=== PATIENT | female | born 1995 | race Hispanic/Latino ===

== ENCOUNTER 2018-05-21 21:18 | Emergency (ER) | payer MEDICAID ==
[2018-05-21 22:42] VITALS: BP 120/75; TEMP 98.9; O2SAT 100
[2018-05-21] MEDS ORDERED: Lactated Ringer's 1,000 ML IV STA (23:10)
[2018-05-21 23:15] LABS: SQUAMOUS EPITHIAL 8 /hpf (0-5); URINE BACTERIA RARE (<OCC); URINE BILIRUBIN NEGATIVE (NEGATIVE); URINE BLOOD NEGATIVE (NEGATIVE); URINE CLARITY SLIGHTY-CLOUDY (Clear); URINE COLOR STRAW (YELLOW); URINE GLUCOSE (UA) NEG (Normal); URINE LEUKOCYTE ESTERASE NEG Leu/uL (Negative); URINE PROTEIN NEGATIVE (NEGATIVE); URINE UROBILINOGEN 0.2-1.0 mg/dL (0.2-1.0)
[2018-05-21 23:30] LABS: BARBITURATES, UR NEGATIVE (NEGATIVE); BENZODIAZEPINES, UR NEGATIVE (NEGATIVE); OPIATES, UR NEGATIVE (NEGATIVE); PHENCYCLIDINE, UR NEGATIVE (NEGATIVE)
--- NOTE | 2018-05-21 23:46 | ED PDOC ---
HPI: Female Pain Time Seen by Provider: 05/21/18 22:41 Chief Complaint (Nursing): Female Genitourinary Chief Complaint (Provider): pelvic pain History Per: Patient History/Exam Limitations: no limitations Onset/Duration Of Symptoms: Days (5), Intermittent Episodes Current Symptoms Are (Timing): Still Present Severity: Moderate Quality Of Discomfort: "Pain" Associated Symptoms: Chills, Nausea, Urinary Symptoms (frequency). denies: Fever, Vomiting, Diarrhea, Loss Of Appetite, Back Pain Alleviating Factors: None Additional Complaint(s): Symptoms started after undergoing procedure on May 16. According to mother, a small "catheter" was placed in the vagina and then into the uterus to evaluate patient for fertility. She denies any vaginal bleeding. Pt undergoing fertility evaluation secondary to not getting after 3 years of trying with her . [employer] CLE[employer] Dr Taylor Past Medical History Reviewed: Historical Data, Nursing Documentation, Vital Signs Vital Signs: Last Vital Signs Temp 98.9 F 05/21/18 22:38 Pulse 90 05/21/18 22:38 Resp 18 05/21/18 22:38 BP 120/75 05/21/18 22:38 Pulse Ox 100 05/21/18 22:38 - Medical History PMH: No Chronic Diseases - Surgical History Surgical History: No Surg Hx - Family History Family History: States: No Known Family Hx - Social History Current smoker - smoking cessation education provided: No - Home Medications Home Medications: Ambulatory Orders Medication Instructions Recorded Nitrofurantoin Macrocrystals 100 mg PO BID 5 Days cap 05/22/18 [Macrobid] - Allergies Allergies/Adverse Reactions: Allergies Allergy/AdvReac Type Severity Reaction Status Date / Time No Known Allergies Allergy Verified 05/21/18 22:38 Review of Systems ROS Statement: Except As Marked, All Systems Reviewed And Found Negative (and as per HPI) Constitutional: Positive for: Chills Genitourinary Female: Positive for: Dysuria, Frequency, Pelvic Pain. Negative for: Vaginal Discharge, Vaginal Bleeding Physical Exam - Reviewed Nursing Documentation Reviewed: Yes Vital Signs Reviewed: Yes - Physical Exam Appears: Positive for: Non-toxic, No Acute Distress Head Exam: Positive for: ATRAUMATIC, NORMOCEPHALIC Skin: Positive for: Warm, Dry Eye Exam: Positive for: EOMI, PERRL Neck: Positive for: Painless ROM, Supple Cardiovascular/Chest: Positive for: Regular Rate, Rhythm. Negative for: Murmur Respiratory: Positive for: Normal Breath Sounds. Negative for: Wheezing Gastrointestinal/Abdominal: Positive for: Bowel Sounds, Soft, Tenderness (mild pelvic tenderness to palpation). 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 Negative for: Deformity Lymphatic: Negative for: Adenopathy Neurologic/Psych: Positive for: Alert. Negative for: Motor/Sensory Deficits - Laboratory Results Result Diagrams: 05/21/18 23:47 05/21/18 23:47 - ECG O2 Sat by Pulse Oximetry: 100 Medical Decision Making Medical Decision Making: Impression: Pelvic pain Ddx include but not limited to UTI, PID, fibroid, ovarian cyst. [facility] Taylor. Reports that patient probably had cervix os tested to see if Morales catheter could be passed, which is typically used for artificial insemination. Very low likelihood of any adverse reaction. 12am Endorse to Dr Araujo. Pending US and labs. Disposition - Clinical Impression Clinical Impression: Pelvic pain - Disposition Disposition: Transfer of Care Disposition Time: 00:00 Condition: STABLE Prescriptions: Nitrofurantoin Macrocrystals [Macrobid] 100 mg PO BID 5 Days cap Patient Signed Over To: Clem Araujo
[2018-05-22 00:15] LABS: ALB/GLOB RATIO 1.1 (1.0-2.1); ALBUMIN 4.6 g/dL (3.5-5.0); ALT/SGPT 30 U/L (9-52); AST/SGOT 25 U/L (14-36); BLOOD UREA NITROGEN 8 mg/dl (7-17); CALCIUM 9.5 mg/dL (8.4-10.2); GFR NON-AFRICAN AMERICAN > 60
[2018-05-22 00:19] LABS: BASO % 0.4 % (0.0-2.0); EOS # 0.1 K/uL (0.0-0.7); EOS % 0.8 % (0.0-4.0); HEMOGLOBIN 10.2 g/dL (12.0-16.0); LYMPH # 2.2 K/uL (1.0-4.3); LYMPH % 25.4 % (20.0-40.0); MEAN CELL VOLUME 54.5 fl (81.0-99.0); MEAN CORPUSCULAR HEMOGLOBIN 17.7 pg (27.0-31.0); MEAN CORPUSCULAR HGB CONC 32.4 g/dL (33.0-37.0); MONO # 0.5 K/uL (0.0-0.8); MONO % 6.3 % (0.0-10.0); NEUT # 5.7 K/uL (1.8-7.0); NEUT % 67.1 % (50.0-75.0); NRBC % 0.2 % (0.0-0.0); RBC 5.79 Mil/uL (3.80-5.20); RED CELL DISTRIBUTION WIDTH 16.3 % (11.5-14.5); WHITE BLOOD COUNT 8.5 K/uL (4.8-10.8)
--- NOTE | 2018-05-22 04:09 | ED PDOC ---
- Laboratory Results Result Diagrams: 05/21/18 23:47 05/21/18 23:47 - ECG O2 Sat by Pulse Oximetry: 100 Medical Decision Making Medical Decision Makin Patient endorsed to me by Dr. Nova 300 U/S negative Patient insistent that she has a UTI based on her symptoms Will treat for clinical UTI Advised her to followup with Uro-Data Architect specialist Well appearing upon discharge. Disposition - Clinical Impression Clinical Impression: Urinary tract infection - POA Present On Arrival: None - Disposition Referrals: Dylan Cheng [Outside] Disposition: Routine/Home Disposition Time: 03:00 Condition: STABLE Additional Instructions: Please see a URO-PCAT INSTRUCTOR. Prescriptions: Nitrofurantoin Macrocrystals [Macrobid] 100 mg PO BID 5 Days cap Instructions: Urinary Tract Infection, Adult (DC) Forms: [employer] ([place])
[2018-05-22 04:22] VITALS: PULSE 89; RESP 13
--- NOTE | 2018-05-22 10:54 | US ---
Date of service: 05/22/2018 HISTORY: Pelvic pain. LMP 05/12/2018 COMPARISON: None available. TECHNIQUE: Transabdominal only. Real-time technique with 2D, duplex and color Doppler FINDINGS: UTERUS: Measures 2.9 x 4.3 x 8.1 cm. Normal in size and appearance. No fibroid or other mass lesion seen. ENDOMETRIUM: Measures 2.5 mm in diameter. No ultrasound findings to suggest gestational sac, fluid, debris, mass or polyp or other pathologic process within the endometrium. CERVIX: No cervical abnormality identified. RIGHT OVARY: Measures 1.8 x 2.4 x 2.7 cm. No solid mass. Normal flow. Multiple subcentimeter follicles. LEFT OVARY: Measures 1.8 x 1.9 x 3.4 cm. No solid mass. Normal flow. Full field digital CC and MLO views of bilateral breasts were obtained. Computer-aided detection was utilized. FREE FLUID: No significant free fluid noted. OTHER FINDINGS: None. IMPRESSION: Unremarkable pelvic ultrasound. Concordant results (preliminary interpretation) provided by [employer]. Procedure Completed: 01:53. Preliminary Report: Dictated and Authenticated: 03:39. Final Interpretation: 10:52.
== END 2018-05-22 03:21 | disposition home or self-care (01) ==
LOC: H.ER 21:18
DX: N39.0 Urinary tract infection, site not specified (principal)
CPT/HCPCS: 76856; 80053; 80324; 80345; 80346; 80349; 80353; 80358; 80361; 81003; 81025; 83992; 85025; 87086; 87491; 87591; 96360; 99283; J7120